=== PATIENT | female | born 1995 | race Caucasian/White ===

== ENCOUNTER → 2022-09-17 13:42 | Outpatient (BNVA) | payer MEDICAID, SELFPAY | PROVIDERS: PCP Nurse Practitioner; Visit Provider Nurse Practitioner | DX: J02.0 Streptococcal pharyngitis (principal) | CPT/HCPCS: 87880 ==

== ENCOUNTER → 2022-11-18 16:39 | Outpatient (BNVA) | payer MEDICAID, SELFPAY | PROVIDERS: PCP Nurse Practitioner; Visit Provider Nurse Practitioner | DX: R30.0 Dysuria (principal); N39.0 Urinary tract infection, site not specified | CPT/HCPCS: 81000 ==